=== PATIENT | male | born 1975 | race Caucasian/White ===

== ENCOUNTER 2022-06-09 00:22 | Day surgery (SDC) | payer OTHER, SELFPAY ==
[2022-05-27 09:36] VITALS: BMI 33.5
--- NOTE | 2022-05-27 09:54 | PC.NURSE ---
Report to the Outpatient Waiting Room, entrance under the green pavilion located off [facility], at time 0830 on date 06/09/22. Planned Procedure Time: 1030. Time changes happen often and if your time is changed the preop area will call you the afternoon before. - You and your visitor will be asked to self-screen and do not enter if you have any COVID symptoms. - Only one visitor is requested with a max of two and NO children visitors are allowed at this time. - The patient visitor may be requested to leave or wait in car when not with patient due to distancing restrictions. - A mask is optional within the hospital. Patients may have clear liquids (water, carbonated beverages, clear teas, apple juice) until 3 hours prior to surgery with a maximum of 20 ounces. - No food from midnight until time of surgery - Infants may have breast milk until 4 hours before surgery, infant formula 6 hours prior to surgery. - Children will be allowed to drink immediately following surgery. If applicable, please bring a bottle or sippy cup to assist with drinking. Juice, water, soda, and popsicles are readily available. For infants on formula, please bring formula the day of surgery. Pacifiers are allowed. Take the following medications with a SIP of water the morning of surgery: xhance(nasal spray)__ Medications to discontinue per physician Date to take last dose Please no make-up, nail djiboutian, hairspray, perfume, deodorant, or body powder the day of surgery. No jewelry (including any body piercings) or valuables the day of surgery, leave them at home. Please take a shower or bath the night before, or the morning of, surgery with an antibacterial soap. Wear comfortable, loose fitting clothing. Children are encouraged to wear pajamas. - Jewelry must be removed prior to entering the operating room. Rings and piercings that are not removed may be cut off. - The hospital will not accept responsibility for valuables. - Please leave all valuables, including medications, at home the day of surgery. If you are going home after surgery, a licensed entry level truck driver must drive you home. - NO public transportation without another adult if you receive anesthesia. - We recommend that an adult stay with you for 24 hours following discharge. - We also recommend that you do not drive, make important decision, drink alcoholic beverages, or take any drugs that were not prescribed by your health care provider for at least 24 hours after your discharge time. For Pediatric surgeries, we recommend two adults accompany the child home. Follow any additional instructions given to you from your surgeon. If you or anyone in your household have experienced Covid symptoms in the past week, please notify your surgeon or the nurse liaison at the phone number below for possible testing. Telephone instructions given to Pedro Luis Nash and asked if any additional questions and then verbalized understanding. Patient advised to call surgeon office or pre surgery nurse liaison [phone] if any additional questions.
[2022-06-09] VITALS (7 sets, daily range): BP systolic 134–156; BP diastolic 68–99; PULSE 68–88; RESP 12–16; TEMP 36.3–36.5; O2SAT 95–100
--- NOTE | 2022-06-09 08:17 | P.PNAN_ITS ---
Anes - Initial Pre Proc Eval Procedure: Operation Date: 06/09/22 09:30 Proposed Procedures p Image Guided Bilateral Frontal Sinusotomy, Bilateral Ethmoidectomy, Bilateral Sphenoidotomy, Bilateral Turbinate Reduction - Dusty Sosa MD Date/Time: 06/09/22 08:17 Surgeon: Dusty Sosa MD Pre Op Diagnosis: chronic sinusitis, turbinate hypertrophy Patient Data Age: 47 Gender: M Height: 1.8 m Weight: 109 kg Allergies Allergy/AdvReac Type Severity Reaction Status Date / Time No Known Allergies Allergy Verified 05/27/22 09:32 Home Medications Medication Instructions Recorded Confirmed Type fexofenadine 60 mg tablet ([place] 60 mg PO Q12H PRN Allergy Symptoms 05/27/22 05/27/22 History Allergy) fluticasone propionate 93 93 mcg intranasal DAILY 05/27/22 05/27/22 History mcg/actuation breath activated aerosol (Xhance) omeprazole 20 mg capsule,delayed 20 mg PO DAILY 05/27/22 05/27/22 History release Patient hx anesthesia problems: none Family hx anesthesia problems: none Results Review: All pre-operative results and documents have been reviewed as part of the pre- operative evaluation. [facility] Past Medical History Medical History Anxiety DVT (deep venous thrombosis) GERD (gastroesophageal reflux disease) Social History Social History Smoking status: Never smoker Alcohol intake: current Substance use: never Living arrangements: with family Spiritual care concerns: No Anes - Eval Final PreProcedure Day of Procedure 06/09/22 08:17 Patient weight: obese Heart: regular rate and rhythm Lungs: clear to auscultation Airway: Mallampati scale class II Neurological: alert and oriented Last oral intake: >/= 8 hours ASA classification: III Emergent: no Anesthetic plan: proceed Anesthesia type and monitoring: general ETT and standard monitoring Results Review: All pre-operative results and documents have been reviewed as part of the pre- operative evaluation. Informed Consent: The patient's anesthetic plan and its attendant risks and benefits were discussed with the patient/family/POA. Questions were solicited and answers provided to the satisfaction of the patient/family/POA.
[2022-06-09] MEDS: LACTATED RINGERS 1,000 ML 30 ML IV CONT (08:25)
[2022-06-09] MEDS: ACETAMINOPHEN 500 MG TABLET 1000 MG PO (08:25)
[2022-06-09] MEDS: OXYMETAZOLINE HCL 0.05% NAS 15 ML BTL (*BKC) 1 SPRAY NASAL (08:25)
--- NOTE | 2022-06-09 08:44 | PM.IMHP ---
H&P: HPI History of Present Illness Date/Time: 06/09/22 08:44 Chief Complaint: chronic sinusitis Narrative: Hx of previous FESS, has chronic sinusitis Review of Systems Review of Systems: All systems reviewed & are unremarkable except as noted in HPI and below PMFSH Past Medical History Medical History Anxiety DVT (deep venous thrombosis) GERD (gastroesophageal reflux disease) Social History Social History Smoking status: Never smoker Alcohol intake: current Substance use: never Living arrangements: with family Spiritual care concerns: No Meds Home Medications and Allergies Home Medications Medication Instructions Recorded Confirmed Type fexofenadine 60 mg tablet ([place] 60 mg PO Q12H PRN Allergy Symptoms 05/27/22 05/27/22 History Allergy) fluticasone propionate 93 93 mcg intranasal DAILY 05/27/22 05/27/22 History mcg/actuation breath activated aerosol (Xhance) omeprazole 20 mg capsule,delayed 20 mg PO DAILY 05/27/22 05/27/22 History release Allergies Allergy/AdvReac Type Severity Reaction Status Date / Time No Known Allergies Allergy Verified 05/27/22 09:32 Exam Narrative: Right agar nasi, bilateral frontal, ethmoid sphenoid sinusitis, turbinate hypertrophy. Assessment and Plan Assessment and plan (1) Chronic sinusitis: Code(s): J32.9 - Chronic sinusitis, unspecified Status: Acute Plan Chronic frontal, ethmoid sphenoid sinusitis, here for revision FESS. r/b/a reviewed, pt understands and agrees to proceed. Refer to outpt H&P for full details.
--- NOTE | 2022-06-09 08:46 | WPDHPUPDATE1 ---
History and Physical Update Update Date/Time: 06/09/22 08:46 History and Physical has been reviewed, including an updated exam of the patient. There are NO changes in the patient's condition. Risks, benefits, and alternatives have been discussed and questions answered. Patient agrees to proceed with procedure.
[2022-06-09] MEDS: ceFAZolin 2 GM/D5W 50 ML 2 GM/50 ML BAG IVPB (08:51)
[2022-06-09] MEDS: LIDO 1%/EPINEPHRINE/PF 1:200,000 30 ML VIAL 5 ML XX (09:09)
--- NOTE | 2022-06-09 09:43 | W.PM.PROC2 ---
Procedure Note - Detailed Date of Procedure 06/09/22 Pre-op Diagnosis chronic sinusitis, turbinate hypertrophy Post-op Diagnosis Same Procedure Performed Bilateral frontal, ethmoid and sphenoid sinus surgery, bilateral inferior turbinoplasty Surgeon Dusty Sosa MD Anesthesia General Indications Chronic sinusitis Findings Right opacified agar nasi, left posterior ethmoid sinusitis with polyposis. Previously existing septal perforation from prior surgery. Description of Procedure On the date of surgery, consent was signed and verified by the patient who elected to proceed. He was brought to the OR and placed under GETA. A timeout was performed and he was draped in standard fashion for endoscopic sinus surgery. Attention was directed to the right side. 1% lidocaine with 1:100k epinephrine was infiltrated in the middle turbinate, lateral nasal wall and superior turbinate. The middle turbinate was lateralized, the s uperior turbinate was lateralized, exposing the sphenoid os. This was dilated with a tanner elevator and then sphenoidotomy was performed with microdebrider assistance. The middle turbinate was then medialized and the posterior and anterior ethmoid sinsues were opened using microdebrider. Next, a frontal suction was used to enter the agar nasi cell and thick fluid was removed with suction. The frontal sinus was then fully entered and widened using front to back biters, suction and microdebrider. The procedure was then performed in the left side in an identical fashion, although the left posterior ethmoid had significant infection and the left frontal sinus did not have a large agar cell. Next, attention was directed to the turbinates. They were infiltrated with 1% lidocaine with 1:100k epinephrine and submucosal resection was performed with microdebrider. They were lateralized with freer elevator. Nasopore was placed in the ethmoid cavity bilaterally. This concluded the procedure, care of the patient was returned to anesthesia who woke him up, extubated him and transferred him to PACU for recovery in stable condition without complication. Estimated Blood Loss 20 Drains No Packing Yes (nasopore bilaterally) Pathology None sent Complications No immediate complications Condition Stable Disposition PACU
[2022-06-09] MEDS: oxyCODONE HCL (*CRX) 5 MG TAB IR PO (10:58)
--- NOTE | 2022-06-09 11:35 | SUR.PHASEII ---
Drip pad changed x1 before discharge.
== END 2022-06-09 11:28 | disposition home or self-care (01) ==
PROVIDERS: PCP Family Medicine; Visit Provider Otolaryngology
PROC: (CPT 30140; principal; 2022-06-09 09:30)
DX: J32.9 Chronic sinusitis, unspecified (principal); J34.3 Hypertrophy of nasal turbinates; J33.8 Other polyp of sinus; K21.9 Gastro-esophageal reflux disease without esophagitis; E66.9 Obesity, unspecified; Z68.35 Body mass index [BMI] 35.0-35.9, adult
CPT/HCPCS: 30140; 31253; 31287; 61782; A9270; J0330; J0690; J1100; J2250; J2405; J2704; J3010; J7120